=== PATIENT | female | born 1965 | race Two or more races ===

== ENCOUNTER 2023-12-23 16:50 | Emergency (ER) | payer OTHER ==
[~2023-12-23] VITALS: Ht 162.6 cm; Wt 56.7 kg
[~2023-12-23 16:50] MED LIST: BENADRYL25 MG PO; CLOTRIMAZOLE-745 GM VG; DERMOPLAST PAIN78 GM; DOXYCYCLINE HY100 M2; KEFLEX750 MG PO; KETO10TA2 PO; LITHATE20 MG; MUPIROCIN15 GM TOP
[2023-12-23] MEDS ORDERED: METROnidazole 500 MG TABLET PO ONE ×2 (18:59→19:00)
[2023-12-23] MEDS ORDERED: ROSADAN45 G1 VAG (19:09)
== END 2023-12-23 19:28 | disposition home or self-care (01) ==
LOC: ER 16:50
DX: N76.0 Acute vaginitis (principal)

== ENCOUNTER 2024-04-14 17:07 | Emergency (ER) | payer OTHER ==
[~2024-04-14] VITALS: Ht 152.4 cm; Wt 45.4 kg
[~2024-04-14 17:07] MED LIST changes: +ROSADAN45 G1 VAG
[2024-04-14 18:17] VITALS: BP 123/80; O2SAT 95
[2024-04-14] MEDS ORDERED: GENTAMICIN SULF15 G2 {1, null} (21:03)
== END 2024-04-14 22:08 | disposition home or self-care (01) ==
LOC: ER
DX: S31.821A Laceration without foreign body of left buttock, initial encounter (principal); T14.8XXA Other injury of unspecified body region, initial encounter; X58.XXXA Exposure to other specified factors, initial encounter; Y93.89 Activity, other specified; Y92.89 Other specified places as the place of occurrence of the external cause; Y99.8 Other external cause status

== ENCOUNTER 2024-05-06 01:47 | Emergency (ER) | payer OTHER ==
[~2024-05-06] VITALS: Ht 160 cm; Wt 63.5 kg
[~2024-05-06 01:47] MED LIST changes: +GENTAMICIN SULF15 G2 {1, null}
== END 2024-05-06 08:24 | disposition left against medical advice (07) ==
LOC: ER 01:47
DX: Z53.21 Procedure and treatment not carried out due to patient leaving prior to being seen by health care provider (principal)

== ENCOUNTER → 2024-07-13 | Emergency (ER) | payer OTHER ==
[~2024-07-13] VITALS: Ht 160 cm; Wt 59.0 kg
== END | disposition left against medical advice (07) ==
LOC: ER 02:46
DX: Z53.21 Procedure and treatment not carried out due to patient leaving prior to being seen by health care provider (principal)

== ENCOUNTER → 2024-09-23 | Emergency (ER) | payer OTHER ==
[~2024-09-23] VITALS: Ht 160 cm; Wt 56.7 kg
[2024-09-23 16:17] VITALS: BP 113/66; O2SAT 99
== END | disposition left against medical advice (07) ==
LOC: ER 15:07
DX: Z53.21 Procedure and treatment not carried out due to patient leaving prior to being seen by health care provider (principal)

== ENCOUNTER → 2024-09-25 | Emergency (ER) | payer OTHER ==
[~2024-09-25] VITALS: Ht 165.1 cm; Wt 54.4 kg
[~2024-09-25] MED LIST changes: +KETOROLAC TROMETHAMINE 30 MG VIAL IM STA; +KETOROLAC TROMETHAMINE 30 MG VIAL ONE
== END | disposition home or self-care (01) ==
LOC: ER 18:29
DX: B37.9 Candidiasis, unspecified (principal); R53.81 Other malaise

== ENCOUNTER 2024-11-02 08:14 | Emergency (ER) | payer OTHER ==
[~2024-11-02] VITALS: Ht 160 cm; Wt 59.0 kg
[~2024-11-02 08:14] MED LIST changes: -KETOROLAC TROMETHAMINE 30 MG VIAL IM STA; -KETOROLAC TROMETHAMINE 30 MG VIAL ONE
[2024-11-02] MEDS ORDERED: TRAMADOL HCL 50 MG TABLET PO ONE (09:15)
[2024-11-02] MEDS ORDERED: AZITHROMYCIN 500 MG TABLET PO ONE ×2 (09:15→10:06)
[2024-11-02 10:27] LABS: BASO % 0.6 % (0.1-1.2); EOS # 0.19 (0.04-0.54); EOS % 2.9 % (0.7-7.0); HEMATOCRIT 40.2 % (34.1-44.9); HEMOGLOBIN 14.6 g/dL (11.2-15.7); LYMPH # 1.39 (1.18-3.74); LYMPH % 21.3 % (19.3-53.1); MEAN CORPUSCULAR HEMOGLOBIN 34.1 pg (25.6-32.2); MONO # 0.93 (0.24-0.82); NEUT # 3.97 (1.56-6.13); NEUT % 60.8 % (34.0-71.1); RED BLOOD COUNT 4.28 M/uL (3.93-5.22); RED CELL DISTRIBUTION WIDTH 11.9 % (11.6-14.4)
[2024-11-02 10:58] LABS: MONO % 14.2 % (4.7-12.5); PLATELET COUNT 115 K/uL (163-369)
[2024-11-02] MEDS ORDERED: PEPCID AC20 MG PO (11:08)
[2024-11-02] MEDS ORDERED: ZOVIRAX400 MG PO (11:08)
== END 2024-11-02 14:33 | disposition home or self-care (01) ==
LOC: ER 08:14
PROVIDERS: General Practice
DX: R21 Rash and other nonspecific skin eruption (principal)

== ENCOUNTER 2024-12-19 07:10 | Emergency (ER) | payer OTHER ==
[~2024-12-19] VITALS: Ht 160 cm; Wt 61.2 kg
[~2024-12-19 07:10] MED LIST changes: +PEPCID AC20 MG PO; +ZOVIRAX400 MG PO
[2024-12-19] MEDS ORDERED: CEFTRIAXONE SODIUM 1,000 MG VIAL IM ONE (10:00)
[2024-12-19] MEDS ORDERED: CEFTRIAXONE SODIUM 1,000 MG VIAL ONE (10:00)
[2024-12-19] MEDS ORDERED: KETOROLAC TROMETHAMINE 30 MG VIAL IM ONE (10:00)
[2024-12-19] MEDS ORDERED: KETOROLAC TROMETHAMINE 30 MG VIAL ONE (10:01)
[2024-12-19] MEDS ORDERED: A AND D OINTM42.5 GM TOP (10:28)
[2024-12-19] MEDS ORDERED: BACTRIM DS TAB1 EACH PO (10:28)
== END 2024-12-19 11:10 | disposition home or self-care (01) ==
LOC: ER 07:10
DX: R21 Rash and other nonspecific skin eruption (principal)

== ENCOUNTER 2024-12-26 08:35 | Emergency (ER) | payer OTHER ==
[~2024-12-26] VITALS: Ht 160 cm; Wt 63.5 kg
[~2024-12-26 08:35] MED LIST changes: +A AND D OINTM42.5 GM TOP; +BACTRIM DS TAB1 EACH PO
[2024-12-26] MEDS ORDERED: MORPHINE SULFATE 4 MG/ML CARTRIDGE IV STA (09:27)
== END 2024-12-26 18:24 | disposition home or self-care (01) ==
LOC: ER 08:35
DX: G89.11 Acute pain due to trauma (principal); M79.604 Pain in right leg; Z65.9 Problem related to unspecified psychosocial circumstances

== ENCOUNTER 2025-02-28 20:04 | Emergency (ER) | payer OTHER ==
[~2025-02-28] VITALS: Ht 152.4 cm; Wt 59.0 kg
== END 2025-02-28 22:57 | disposition left against medical advice (07) ==
LOC: ER 20:04
DX: Z53.21 Procedure and treatment not carried out due to patient leaving prior to being seen by health care provider (principal)